=== PATIENT | male | born 1985 | race Caucasian/White ===

== ENCOUNTER 2018-06-30 13:08 | Emergency (ER) | payer MEDICAID ==
[~2018-06-30] VITALS: Ht 177.8 cm; Wt 69.0 kg
[2018-06-30 13:29] VITALS: BP 158/105
--- NOTE | 2018-06-30 14:09 | NUR ---
Called and left VM for patient.
== END 2018-06-30 14:08 | disposition left against medical advice (07) ==
LOC: ER 13:08
DX: F15.10 Other stimulant abuse, uncomplicated (principal); Z53.21 Procedure and treatment not carried out due to patient leaving prior to being seen by health care provider

== ENCOUNTER → 2018-07-18 | Emergency (ER) | payer MEDICAID ==
[~2018-07-18] VITALS: Ht 177.8 cm; Wt 75.0 kg
[~2018-07-18] MED LIST: IBUP-1984 PO; LIDOcaine 1% w/epiNEPHrine 1:200,000 30ml vial IM ONE; SULF1TAB49 PO
[2018-07-18 16:16] VITALS: BP 153/108
== END | disposition home or self-care (01) ==
LOC: ER 16:12
DX: H05.011 Cellulitis of right orbit (principal); L02.416 Cutaneous abscess of left lower limb; F12.90 Cannabis use, unspecified, uncomplicated; F15.90 Other stimulant use, unspecified, uncomplicated; F11.90 Opioid use, unspecified, uncomplicated; Z56.0 Unemployment, unspecified
CPT/HCPCS: 10061; 99284; J3490